=== PATIENT | female | born 1995 | race Caucasian/White ===

== ENCOUNTER → 2023-04-04 12:05 | Outpatient (BNVA) | payer OTHER, MEDICAID, SELFPAY | PROVIDERS: PCP Family Medicine; Visit Provider Nurse Practitioner Women's Health | DX: Z01.419 Encounter for gynecological examination (general) (routine) without abnormal findings (principal); Z11.3 Encounter for screening for infections with a predominantly sexual mode of transmission; N92.6 Irregular menstruation, unspecified | CPT/HCPCS: 84146; 84402; 84443; 86592; 86803; 87340; 87806; 88175 ==